=== PATIENT | male | born 1950 | race Caucasian/White ===

== ENCOUNTER 2022-12-19 13:11 | Inpatient (IN) | payer OTHER ==
[2022-12-19 13:56] VITALS: BMI 28.1
[2022-12-19] MEDS ORDERED: NALOXONE HCL 0.4 MG/ML VIAL IM PRN (15:27)
[2022-12-19] MEDS ORDERED: NALOXONE HCL (KLOXXADO) 8 MG SPRAY NS PRN (15:27)
[2022-12-19] MEDS ORDERED: guaiFENesin 600 MG TABLET.ER (FP) PO PRN (15:27)
[2022-12-19] MEDS ORDERED: ONDANSETRON *ODT* 4 MG TABLET SL PRN (15:27)
[2022-12-19] MEDS ORDERED: BENZONATATE 200 MG CAPSULE PO PRN (15:27)
[2022-12-19] MEDS ORDERED: POLYETHYLENE GLYCOL (HEALTHYLAX) 3350 17 GM PACKET PO PRN (15:27)
[2022-12-19] MEDS ORDERED: IBUPROFEN 400 MG TABLET (FP) PO PRN (15:27)
[2022-12-19] MEDS ORDERED: METHOCARBAMOL 500 MG TABLET PO PRN (15:27)
[2022-12-19] MEDS ORDERED: LORazepam 1 MG TABLET PO PRN (15:27)
[2022-12-19] MEDS ORDERED: BENZOCAINE/MENTHOL (CHLORASEPTIC ) LOZENGE MM PRN (15:27)
[2022-12-19] MEDS ORDERED: MAGNESIUM HYDROX 2400MG/30ML ORAL SUSPENSION 30 ML CUP PO PRN (15:27)
[2022-12-19] MEDS ORDERED: LORazepam 2 MG TABLET PO ONE (15:27)
[2022-12-19] MEDS ORDERED: BISMUTH SUBSALICYLATE 262 MG/15 ML BTL PO PRN (15:27)
[2022-12-19] MEDS ORDERED: LOPERAMIDE HCL 2 MG CAPSULE PO PRN (15:27)
[2022-12-19] MEDS ORDERED: LORazepam 2 MG TABLET ONE (15:53)
[2022-12-19] MEDS: PRENATAL VITAMINS W/ FOLIC ACID TABLET (FP) PO SCH (15:55)
[2022-12-19] MEDS: LORazepam 2 MG TABLET PO SCH ×2 (18:05→22:42)
[2022-12-19] MEDS: MELATONIN 5 MG TABLETS PO SCH (22:42)
[2022-12-19] MEDS: THIAMINE HCL 100 MG TABLET (FP) PO SCH (22:42)
[2022-12-19] MEDS: ACETAMINOPHEN 325 MG TABLET (FP) PO PRN (22:46)
[2022-12-20] MEDS: LORazepam 2 MG TABLET PO SCH ×4 (06:00→22:15)
[2022-12-20] MEDS ORDERED: methaDONE HCL 10 MG TABLET PO ONE (08:46)
[2022-12-20] MEDS ORDERED: methaDONE 40 MG, methaDONE 30 MG PO ONE (09:15)
[2022-12-20] MEDS: PRENATAL VITAMINS W/ FOLIC ACID TABLET (FP) PO SCH (10:06)
[2022-12-20] MEDS: IBUPROFEN 600 MG TABLET (FP) PO PRN ×2 (10:06→22:16)
[2022-12-20 11:11] LABS: HEMATOCRIT 38.7 % (35.4-49); MCH 31.6 pg (25.7-33.7); MCHC 33.5 g/dl (32.0-35.9); MEAN CELL VOLUME 94.2 fl (80-96); MEAN PLT VOLUME 8.9 fl (7.5-11.1); PLATELET COUNT 108 10^3/uL (134-434); RBC 4.11 M/mm3 (4.00-5.60); RDW 13.5 % (11.9-15.9); WHITE BLOOD COUNT 7.4 K/mm3 (4.0-10.0)
[2022-12-20 11:48] LABS: POTASSIUM 4.1 mmol/L (3.5-5.1)
[2022-12-20 11:51] LABS: ALBUMIN 2.9 g/dl (3.4-5.0); BLOOD UREA NITROGEN 10.6 mg/dL (7-18)
[2022-12-20 11:54] LABS: CREATININE 0.8 mg/dL (0.55-1.3)
[2022-12-20 11:55] LABS: BILIRUBIN,TOTAL 0.6 mg/dL (0.2-1); TOT PROT 5.8 g/dl (6.4-8.2)
[2022-12-20] MEDS: amLODIPine BESYLATE 10 MG TABLET (FP) PO SCH (14:56)
[2022-12-20] MEDS: ACETAMINOPHEN 325 MG TABLET (FP) PO PRN (17:17)
[2022-12-20] MEDS: MELATONIN 5 MG TABLETS PO SCH (22:15)
[2022-12-20] MEDS: THIAMINE HCL 100 MG TABLET (FP) PO SCH (22:15)
[2022-12-21] MEDS: LORazepam 1 MG TABLET PO SCH ×4 (05:46→22:00)
[2022-12-21] MEDS: methaDONE 40 MG, methaDONE 30 MG PO SCH (05:46)
[2022-12-21] MEDS ORDERED: methaDONE HCL 10 MG TABLET PO SCH (06:00)
[2022-12-21] MEDS: PRENATAL VITAMINS W/ FOLIC ACID TABLET (FP) PO SCH (10:53)
[2022-12-21] MEDS: amLODIPine BESYLATE 10 MG TABLET (FP) PO SCH (10:54)
[2022-12-21] MEDS: hydrOXYzine PAMOATE 25 MG CAPSULE (FP) PO PRN ×2 (10:54→21:54)
[2022-12-21] MEDS ORDERED: LACTULOSE 20 GM/30 ML UDC (FOR ORAL USE ONLY) PO ONE (10:57)
[2022-12-21] MEDS: MAG HYDROX/AL HYDROX/SIMETH 30 ML UNIT-DOSE CUP PO PRN ×2 (12:46→21:51)
[2022-12-21] MEDS: LACTULOSE 20 GM/30 ML UDC (FOR ORAL USE ONLY) PO SCH ×3 (13:36→21:54)
[2022-12-21] MEDS: THIAMINE HCL 100 MG TABLET (FP) PO SCH (21:55)
[2022-12-21] MEDS: MELATONIN 5 MG TABLETS PO SCH (21:55)
[2022-12-22] MEDS ORDERED: LORazepam 0.5 MG TABLET PO PRN
[2022-12-22] MEDS: LORazepam 0.5 MG TABLET PO SCH ×4 (05:56→22:30)
[2022-12-22] MEDS: methaDONE 40 MG, methaDONE 30 MG PO SCH (05:57)
[2022-12-22] MEDS: LACTULOSE 20 GM/30 ML UDC (FOR ORAL USE ONLY) PO SCH ×4 (11:21→22:31)
[2022-12-22] MEDS: amLODIPine BESYLATE 10 MG TABLET (FP) PO SCH (11:22)
[2022-12-22] MEDS: PRENATAL VITAMINS W/ FOLIC ACID TABLET (FP) PO SCH (11:22)
[2022-12-22] MEDS: DICYCLOMINE HCL 10 MG CAPSULE PO PRN (22:30)
[2022-12-22] MEDS: THIAMINE HCL 100 MG TABLET (FP) PO SCH (22:30)
[2022-12-22] MEDS: MELATONIN 5 MG TABLETS PO SCH (22:31)
[2022-12-23] MEDS ORDERED: LORazepam 0.5 MG TABLET PO ONE (05:00)
[2022-12-23] MEDS: methaDONE 40 MG, methaDONE 30 MG PO SCH (06:00)
[2022-12-23] MEDS: amLODIPine BESYLATE 10 MG TABLET (FP) PO SCH (09:51)
[2022-12-23] MEDS: PRENATAL VITAMINS W/ FOLIC ACID TABLET (FP) PO SCH (09:51)
[2022-12-23] MEDS: LACTULOSE 20 GM/30 ML UDC (FOR ORAL USE ONLY) PO SCH ×4 (09:51→22:34)
[2022-12-23] MEDS: DICYCLOMINE HCL 10 MG CAPSULE PO PRN (19:27)
[2022-12-23] MEDS: hydrOXYzine PAMOATE 25 MG CAPSULE (FP) PO PRN (19:27)
[2022-12-23] MEDS: MAG HYDROX/AL HYDROX/SIMETH 30 ML UNIT-DOSE CUP PO PRN (20:32)
[2022-12-23] MEDS: MELATONIN 5 MG TABLETS PO SCH (22:34)
[2022-12-23] MEDS: THIAMINE HCL 100 MG TABLET (FP) PO SCH (22:35)
[2022-12-24] MEDS: methaDONE 40 MG, methaDONE 30 MG PO SCH (06:02)
[2022-12-24 09:46] VITALS: BP 131/84; PULSE 79; RESP 18; TEMP 97.1
[2022-12-24] MEDS: PRENATAL VITAMINS W/ FOLIC ACID TABLET (FP) PO SCH (10:34)
[2022-12-24] MEDS: amLODIPine BESYLATE 10 MG TABLET (FP) PO SCH (10:34)
[2022-12-24] MEDS: LACTULOSE 20 GM/30 ML UDC (FOR ORAL USE ONLY) PO SCH (10:34)
== END 2022-12-24 11:06 | disposition home or self-care (01) | DRG 897 ==
LOC: YASAS 13:11 → Y6N 17:10
PROVIDERS: ADMIT Allergy & Immunology; ATTEND Surgery
PROC: HZ2ZZZZ Detoxification Services for Substance Abuse Treatment (ICD-10-PCS; principal; 2022-12-19)
DX: F10.230 Alcohol dependence with withdrawal, uncomplicated (principal); F11.20 Opioid dependence, uncomplicated; F25.1 Schizoaffective disorder, depressive type; I10 Essential (primary) hypertension; R79.89 Other specified abnormal findings of blood chemistry; Z62.810 Personal history of physical and sexual abuse in childhood; R26.89 Other abnormalities of gait and mobility; Z99.89 Dependence on other enabling machines and devices; Z59.01 Sheltered homelessness
CPT/HCPCS: 36415; 80053; 82140; 85027; 86780; 87635; 93005; 93010